=== PATIENT | female | born 1930 | race Caucasian/White ===

== ENCOUNTER 2016-06-21 23:41 | Emergency (ER) | payer OTHER, BC ==
--- NOTE | ~2016-06-21 | CT52 ---
[facility] A Service of [facility] RADIOLOGY TEXT RESULTS PATIENT: PEREZ CHARLES LOCATION: [facility] : [birth year] UNIT #: [id number] AGE: [address]: Roverto Russo MD SEX: F ORDER DR: [id number] [facility] [address] [place], [place] [address] [id number] E MR#: [id number] Acc #: [id number] NAME: PEREZ CHARLES : 1930 SEX: F STUDY DATE/TIME: 06/21/2016 23:48 UNIT: [facility] ROOM: STUDY DESCRIPTION: CT Cervical Spine Wo Cont Attending Physician: Roverto Russo M.D. Ordering Physician: Roverto Russo M.D. Primary Care Physician: Jeremiah Junior M.D. MEDICAL IMAGING REPORT This report is preliminary unless electronic signature is present EXAM CT cervical spine without contrast, 06/21/2016 at 23:48 HISTORY 86-year-old female who fell at home today. Hit head. Complains of generalized cervical spine pain. COMPARISON None PROCEDURE 2.0 mm noncontrast axial images through the cervical spine. Sagittal and coronal reformatted images were obtained. TECHNIQUE This CT exam was performed with one or more of the following radiation dose reduction techniques: automatic exposure control, adjustment of mA and/or kV according to patient size, and iterative reconstruction. FINDINGS Suspected mild acute compression deformities of superior endplates of C7 and T1. There is proximally 19% loss of vertebral body height of the C7 vertebral body, and approximately 23% loss of the T1 vertebral body height. No bony retropulsion or subluxation is seen, and no posterior element involvement is identified. There is approximately 2.0 mm retrolisthesis C3 upon C4, C4 upon C5 and C5 upon C6 which is nonspecific and thought to be chronic. There is advanced degenerative and disc endplate changes with anterior and posterior osteophyte formation at C3-4, C4-5, C5-6 and C6-7. Multilevel facet arthropathy is also present. At C2-3, no significant disc bulge, canal or foraminal stenosis is [facility] A Service of [facility] RADIOLOGY TEXT RESULTS PATIENT: PEREZ CHARLES LOCATION: [facility] : [birth year] UNIT #: [id number] AGE: [address]: Roverto Russo MD SEX: F ORDER DR: gisell. At C3-4, there is retrolisthesis, moderate right greater left facet arthropathy, moderate right anterior canal stenosis, severe right, moderate to severe left canal stenosis with right paracentral disc osteophyte formation. At C4-5, there is posterior disc osteophyte formation with right greater than left uncovertebral spurring and moderate bilateral facet arthropathy, right greater left. There is vckc-xg-yysjetqk canal stenosis, severe right, moderate to severe left neural foraminal narrowing. There is retrolisthesis of C4 upon C5. At C5-6, broad-based posterior disc osteophyte formation is present, with [id number]-[id number] bilateral facet arthropathy and uncovertebral spurring. There is mild retrolisthesis C5 upon C6. Mild canal stenosis, moderate to severe bilateral neural foraminal narrowing. At C6-7, broad-based posterior disc osteophyte formation is present with right side uncovertebral spurring. There is moderate canal stenosis, moderate right, moderate to severe left neural foraminal narrowing. At C7-T1, no disc bulge, canal or foraminal stenosis is seen. Moderate right apical pleural effusion is present layering to a depth of approximately 2.5 cm. Apical emphysematous changes are present. No apical pneumothorax is seen. What appears to be a small probable tracheal diverticulum is seen within the right aspect of the thoracic inlet. No displaced right apical rib fracture is identified. Bilateral carotid bulb calcifications are noted. Imaged portion of brain parenchyma appears moderately atrophic. Multinodular non-enlarged thyroid gland. IMPRESSION 1. Suspected acute compression deformities of the superior endplate of C7 and T1 with 19% loss of C7 vertebral body height and approximately 23% loss of T1 vertebral body height. No evidence of bony retropulsion, subluxation or posterior element involvement at these levels. 2. Advanced multilevel degenerative changes of the cervical spine as described in great detail in the report. There is approximately 1.0-2.0 mm retrolisthesis of C3 upon C4, C4 upon C5 and C5 upon C6 which is favored to be the result of chronic degenerative change. 3. Right apical pleural effusion. No right apical pneumothorax or displaced right apical rib fracture is seen. 4. 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 [facility] A Service of [facility] RADIOLOGY TEXT RESULTS PATIENT: PEREZ CHARLES LOCATION: [facility] : [birth year] UNIT #: [id number] AGE: [address]: Roverto Russo MD SEX: F ORDER DR: 5. Emphysema. 6. Air-fluid level of the left maxillary sinus. Please refer to CT head report from the same day for pertinent facial findings. Dictated by... Charlotte Jorge M.D. THIS IS AN ELECTRONICALLY VERIFIED REPORT Charlotte Jorge M.D. at 06/23/2016 12:10 AM Brando TD: 06/22/2016 11:48 JOB #: [id number] MEDICAL IMAGING REPORT COPY
--- NOTE | ~2016-06-21 | CR150 ---
[facility] A Service of [facility] RADIOLOGY TEXT RESULTS PATIENT: PEREZ CHARLES LOCATION: [facility] : [birth year] UNIT #: [id number] AGE: [address]: Roverto Russo MD SEX: F ORDER DR: [id number] [facility] [address] [place], [place] [address] [id number] E MR#: [id number] Acc #: [id number] NAME: PEREZ CHARLES : 1930 SEX: F STUDY DATE/TIME: 06/21/2016 22:35 UNIT: [facility] ROOM: STUDY DESCRIPTION: CR Hip Min 2 Views Lt Attending Physician: Roverto Russo M.D. Ordering Physician: Roverto Russo M.D. Primary Care Physician: Jeremiah Junior M.D. MEDICAL IMAGING REPORT This report is preliminary unless electronic signature is present REVISED REPORT SEE ADDENDUM EXAM AP pelvis with frog view left hip, 06/21/2016 at 22:35 HISTORY 86-year-old female with left hip pain today after falling. COMPARISON None FINDINGS No pelvic fracture, hip fracture or hip dislocation is seen. There is moderate bilateral hip joint space narrowing without spurring. No sacroiliac joint or pubic symphysis diastasis. Advanced osteopenic changes are present. IMPRESSION 1. No acute abnormality of the pelvis or left hip. 2. 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 3. Osteopenia. Dictated by... Charlotte Jorge M.D. THIS IS AN ELECTRONICALLY VERIFIED REPORT Charlotte Jorge M.D. at 06/23/2016 12:12 AM SAL/kyle TD: 06/22/2016 11:33 JOB #: [id number] [facility] A Service of [facility] RADIOLOGY TEXT RESULTS PATIENT: PEREZ CHARLES LOCATION: [facility] : [birth year] UNIT #: [id number] AGE: [address]: Roverto Russo MD SEX: F ORDER DR: ADDENDUM After review of CT, there does appear to be a mildly displaced fracture of the left pubic body extending to the left superior and inferior pubic rami. This is partially obscured on the current radiograph by air within the rectal vault. The findings were discussed on the dedicated CT pelvis performed separately on this same date. Additional job number [id number] Dictated by... Charlotte Jorge M.D. THIS IS AN ELECTRONICALLY VERIFIED REPORT Charlotte Jorge M.D. at 06/27/2016 8:[address] [facility]/daisy TD: 06/22/2016 11:55 JOB #: [id number] CC: Silviano/suha Please Delete MEDICAL IMAGING REPORT Page 1 of 1 COPY
--- NOTE | ~2016-06-21 | CT71 ---
[facility] A Service of [facility] RADIOLOGY TEXT RESULTS PATIENT: PEREZ CHARLES LOCATION: [facility] : [birth year] UNIT #: [id number] AGE: [address]: Roverto Russo MD SEX: F ORDER DR: [id number] [facility] [address]. [place], [place] [address] [id number] E MR#: [id number] Acc #: [id number] NAME: PEREZ CHARLES : 1930 SEX: F STUDY DATE/TIME: 06/21/2016 23:45 UNIT: [facility] ROOM: STUDY DESCRIPTION: CT Head Wo Contrast Attending Physician: Roverto Russo M.D. Ordering Physician: Roverto Russo M.D. Primary Care Physician: Jeremiah Junior M.D. MEDICAL IMAGING REPORT This report is preliminary unless electronic signature is present EXAM Noncontrast CT head DATE 06/21/2016 at 23:45 HISTORY 86-year-old female who fell at home today, hit head. Loss of consciousness. Headache. COMPARISON None TECHNIQUE This CT exam was performed with one or more of the following radiation dose reduction techniques: automatic exposure control, adjustment of mA and/or kV according to patient size, and iterative reconstruction. FINDINGS No acute intracranial hemorrhage, mass lesion, mass effect, midline shift or evidence of acute or evolving infarct. There is moderate generalized parenchymal atrophy and changes related to chronic microvascular disease. Air-fluid level is seen with the left maxillary sinus, there are irregularities suggestive of fractures of the lateral and anterior wall of the left maxillary sinus. Mild left facial soft tissue swelling is noted. Small amount of air is demonstrated within the left facial soft tissues. No retained radiopaque foreign body is seen. IMPRESSION 1. Findings suggestive of fractures of the left anterior and lateral maxillary sinus merchant with air-fluid level in the left maxillary sinus. 2. Left facial soft tissue swelling. [facility] A Service of [facility] RADIOLOGY TEXT RESULTS PATIENT: PEREZ CHARLES LOCATION: [facility] : [birth year] UNIT #: [id number] AGE: [address]: Roverto Russo MD SEX: F ORDER DR: 3. Dedicated CT face recommended for further evaluation. 4. No acute intracranial findings. 5. Moderate generalized parenchymal atrophy and chronic microvascular disease. Dictated by... Charlotte Jorge M.D. THIS IS AN ELECTRONICALLY VERIFIED REPORT Charlotte Jorge M.D. at 06/23/2016 12:[address] [facility]/candice TD: 06/22/2016 11:49 JOB #: [id number] MEDICAL IMAGING REPORT COPY
--- NOTE | ~2016-06-21 | CT107 ---
[facility] A Service of [facility] RADIOLOGY TEXT RESULTS PATIENT: PEREZ CHARLES LOCATION: [facility] : [birth year] UNIT #: [id number] AGE: [address]: Roverto Russo MD SEX: F ORDER DR: [id number] [facility] [address] [place], [place] [address] [id number] E MR#: [id number] Acc #: [id number] NAME: PEREZ CHARLES : 1930 SEX: F STUDY DATE/TIME: 06/21/2016 23:51 UNIT: [facility] ROOM: STUDY DESCRIPTION: CT Pelvis Wo Cont Attending Physician: Roverto Russo M.D. Ordering Physician: Roverto Russo M.D. Primary Care Physician: Jeremiah Junior M.D. MEDICAL IMAGING REPORT This report is preliminary unless electronic signature is present EXAM CT pelvis with contrast, 06/21/2016 HISTORY 86-year-old female who fell today. Complaints of generalized spine pain. COMPARISON No prior CT pelvis at this institution for comparison. Correlation with left hip and AP pelvis radiographs 06/21/2016 at 22:35. PROCEDURE 2.0 mm axial images through the pelvis and left hip without IV contrast. Sagittal and coronal reformatted images were obtained. TECHNIQUE This CT exam was performed with one or more of the following radiation dose reduction techniques: automatic exposure control, adjustment of mA and/or kV according to patient size, and iterative reconstruction. FINDINGS Minimally displaced left superior and inferior pubic rami fractures and left pubic body fractures. No left hip fracture or hip dislocation. Asymmetric thickening of the left internal obturator and external obturator muscles consistent with intramuscular hematomas. Nondisplaced left sacral ala fracture. Left iliac wing appears intact. No sacroiliac joint diastasis is seen. Lumbar curvature toward the left. Degenerative endplate changes and facet arthropathy in the imaged lower lumbar spine. Incidental note of right renal cyst, extensive diverticulosis, presumed hysterectomy, generalized body wall edema. [facility] A Service [facility] RADIOLOGY TEXT RESULTS PATIENT: PEREZ CHARLES LOCATION: [facility] : [birth year] UNIT #: [id number] AGE: [address]: Roverto Russo MD SEX: F ORDER DR: IMPRESSION 1. Mildly displaced left superior and inferior pubic rami and left pubic body fractures. 2. Nondisplaced left superior sacral ala fracture without SI joint diastasis. 3. No left hip fracture or hip dislocation. 4. Asymmetric thickening of left internal and external obturator muscles consistent with intramuscular hematoma. 5. Lumbar levoscoliosis with degenerative endplate and facet changes. 6. Incidental findings of right renal cyst, colonic diverticulosis, presumed hysterectomy. Dictated by... Charlotte Jorge M.D. THIS IS AN ELECTRONICALLY VERIFIED REPORT Charlotte Jorge M.D. at 06/23/2016 12:11 AM rBando TD: 06/22/2016 11:56 JOB #: [id number] MEDICAL IMAGING REPORT COPY
--- NOTE | ~2016-06-21 | EKG ---
PATIENT: PEREZ CHARLES UNIT #: [id number] Ventricular Rate: 122 BPM Atrial Rate: 136 BPM QRS Duration: 96 ms Q-T Interval: 320 ms QTC Calculation(Bezet): 456 ms Calculated R [place]: 36 degrees Calculated T [place]: -82 degrees Diagnosis Line: Atrial fibrillation with rapid ventricular Diagnosis Line: response with premature ventricular or aberrantly Diagnosis Line: conducted complexes Diagnosis Line: Minimal voltage criteria for LVH, may be normal Diagnosis Line: variant Diagnosis Line: Cannot rule out Anterior infarct , age Diagnosis Line: undetermined Diagnosis Line: Abnormal ECG Diagnosis Line: When compared with ECG of 21-JUL-2015 05:56, Diagnosis Line: Anterior infarct is now Present Diagnosis Line: Confirmed by ALDO SAENZ MD ([id number]) on 06/22/2016 Diagnosis Line: 5:45:34 PM INTERPRETING MD: LETTY TAMEZ
[2016-06-21 23:06] LABS: INR 1.2; PARTIAL THROMBOPLASTIN TIME 25.4 SECONDS (23.5-31.3); PROTHROMBIN TIME (PATIENT) 12.9 SECONDS (9.6-11.5)
[2016-06-21 23:17] LABS: ALBUMIN SERUM 3.8 g/dL (3.5-5.0); ALKALINE PHOSPHATASE 68 U/L (32-92); ALT (SGPT) 13 U/L (10-40); AST (SGOT) 25 U/L (10-42); BILIRUBIN, DIRECT 0.4 mg/dL (0.0-0.2); BILIRUBIN,INDIRECT 1.5 mg/dL (0.0-0.9); BILIRUBIN,TOTAL 1.9 mg/dL (0.2-2.0); BLOOD UREA NITROGEN 26 mg/dL (9-23); CALCIUM SERUM 9.1 mg/dL (8.4-10.2); CARBON DIOXIDE 27 mmol/L (22-31); CHLORIDE 106 mmol/L (100-111); CREATININE SERUM 0.8 mg/dL (0.6-1.4); GLOM FILT RATE Estimated ABOVE60 mL/min (>60); GLUCOSE FASTING 133 mg/dL (70-110); POTASSIUM 3.8 mmol/L (3.5-5.1); PROTEIN TOTAL SERUM 6.2 g/dL (6.0-8.3); SODIUM 141 mmol/L (135-145)
[2016-06-21 23:29] LABS: BASOPHIL# 0.1 X10e3 (0-0.3); BASOPHIL% 0.4 % (0-2.5); EOSINOPHIL% 0.2 % (0.0-7.0); HEMATOCRIT 36.2 % (35.0-45.0); HEMOGLOBIN 10.4 gm/dL (12.0-16.0); LYMPHOCYTE# 0.5 X10e3 (1.0-3.5); LYMPHOCYTE% 4.3 % (17.0-45.0); MEAN CELL VOLUME 64.7 FL (83-96); MEAN CORPUSCULAR HEMOGLOBIN 18.6 PG (28-34); MEAN CORPUSCULAR HGB CONC 28.7 g/dL (30-36); MEAN PLATELET VOLUME 9.2 FL (6.5-11.5); MONOCYTE# 1.2 X10e3 (0-1.0); MONOCYTE% 10.2 % (3.0-12.0); NEUTROPHIL# 10.2 X10e3 (1.5-7.1); NEUTROPHIL% 84.9 % (40-75); PLATELET COUNT 148 X10e3 (140-420); RED CELL DISTRIBUTION WIDTH 21.7 % (11.0-15.5)
[2016-06-21 23:30] LABS: DIFF IND YES
[~2016-06-21 23:41] MED LIST: AMLODIPINE BESYL5 MG PO; ASPIRIN EC81 M1 PO; CATAPRES0.1 MG PO; CENTRUM SILVER1 EAC3 PO; INDAPAMIDE1.25 MG PO; K-DUR20 ME2 PO; LASIX20 MG PO; LISINOPRIL20 MG PO; LOPRESSOR PO; PRINIVIL10 MG PO
[2016-06-22 00:04] LABS: HYPERSEGMENTED POLYS PRESENT; PLATELET ESTIMATE DECREASED (NORMAL)
[2016-06-22 00:05] LABS: HYPOCHROMIA SL; OVALOCYTES PRESENT; POIKILOCYTOSIS SL
[2016-06-22] MEDS ORDERED: LEXAPRO PO (01:13)
[2016-06-22] MEDS ORDERED: LASIX20 MG PO (01:16)
[2016-06-22] MEDS ORDERED: LASIX PO (01:17)
[2016-06-22] MEDS ORDERED: ASPIRIN EC81 M1 PO (01:18)
[2016-06-22] MEDS ORDERED: POTASSIUM CHLO10 ME1 PO (01:18)
[2016-06-22] MEDS ORDERED: LISINOPRIL20 MG PO (01:19)
[2016-06-22] MEDS ORDERED: METOPROLOL TAR25 MG PO (01:19)
[2016-06-22] MEDS ORDERED: ACETAMINOPHEN PO (01:20)
== END 2016-06-22 02:20 | disposition short-term general hospital (02) ==
LOC: CED 23:41
PROVIDERS: Emergency Medicine
DX: S12.600A Unspecified displaced fracture of seventh cervical vertebra, initial encounter for closed fracture (principal); S22.069A Unspecified fracture of T7-T8 vertebra, initial encounter for closed fracture; S02.40DA Maxillary fracture, left side, initial encounter for closed fracture; S32.502A Unspecified fracture of left pubis, initial encounter for closed fracture; S01.112A Laceration without foreign body of left eyelid and periocular area, initial encounter; I48.91 Unspecified atrial fibrillation; Z79.899 Other long term (current) drug therapy; Z79.82 Long term (current) use of aspirin; W19.XXXA Unspecified fall, initial encounter; Y92.009 Unspecified place in unspecified non-institutional (private) residence as the place of occurrence of the external cause
CPT/HCPCS: 36415; 70450; 72125; 72192; 73502; 80048; 80076; 85025; 85610; 85730; 93005; 96374; 99291; J2270; J2405